=== PATIENT | male | born 1985 | race African-American/Black ===

== ENCOUNTER 2019-04-04 20:41 | Emergency (ER) | payer OTHER ==
[2019-04-04] MEDS ORDERED: Adacel (T-DAP) 0.5 ML SYRINGE ONE (21:20)
[2019-04-04] MEDS ORDERED: Cephalexin 250 MG CAP ONE (21:35)
--- NOTE | 2019-04-04 22:59 | RAD ---
LEFT THUMB THREE VIEWS: 04/04/19 No fracture or joint abnormality was seen. All bones and joints appear intact. IMPRESSION: No acute findings. POS: HOME
== END 2019-04-04 21:40 | disposition home or self-care (01) ==
LOC: BURERS 20:41
DX: S61.012A Laceration without foreign body of left thumb without damage to nail, initial encounter (principal); R79.1 Abnormal coagulation profile; G51.0 Bell's palsy; W45.8XXA Other foreign body or object entering through skin, initial encounter
CPT/HCPCS: 12001; 90471; 90715; Q4049